=== PATIENT | male | born 2005 | race Caucasian/White ===

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

== ENCOUNTER 2024-08-24 20:41 | Emergency (ER) | payer OTHER, SELFPAY ==
[2024-08-24] VITALS (20 sets, daily range): BP systolic 127–173; BP diastolic 51–92; PULSE 92–96; RESP 16–17; TEMP 36.9; O2SAT 96–100
[2024-08-24] MEDS: Sucralfate 1 GM TAB PO (21:13)
--- NOTE | 2024-08-24 21:13 | W.ED.GENAD ---
Discharge Plan Disposition Patient Disposition: Home Condition: Good Discharge Details Clinical Impression: Acute dehydration, Vomiting and diarrhea Primary Care Provider: Michael Clancy ED Provider: Michael Jade Home Meds and New Rx's Prescriptions: New pantoprazole 20 mg tablet,delayed release (DR/EC) 20 mg PO DAILY Qty: 30 0RF famotidine 20 mg tablet 20 mg PO DAILY Qty: 30 0RF sucralfate [Carafate] 1 gram tablet 1 g PO BID Qty: 60 0RF Discharge Instructions Instructions: Nausea and vomiting in adults Additional Instructions: At this time your repeat laboratory workup has returned normal. You been rehydrated. Please take the medications that have been prescribed to help in your stomach 3 healing process after this vomiting. Please take the Zofran as needed for nausea. If you notice any worsening of your symptoms, or any new symptoms such as vomiting, diarrhea, fever, chills, shortness of breath, chest pain, numbness, weakness, or fainting , please return immediately to the emergency department for reevaluation. Please follow up with your primary care provider as soon as possible for reassessment and reevaluation. As always, it was a pleasure participating in your medical care today. Referrals: Michael Clancy MD [Primary Care Provider] - [facility] General Date/Time Provider Initiated Documentation: 08/24/24 20:53. [facility] Narrative: 18-year-old male with no significant past medical history presents today for evaluation of nausea and vomiting and diarrhea. Patient states that symptoms started around noon. Last night he did have prime rib for dinner, and this late morning he had spinach stuffing. He did have a greater than normal amount of alcohol in [place], but no other significant alcohol intake otherwise. He denies any medication use. No other sick contacts at home. He admits to multiple episodes of this vomiting and diarrhea. No blood in his stool, but he does admit to seeing a small amount of streaking of blood in the most recent episode of emesis. He denies any history of GI bleeds in the past. He denies any excessive Tylenol or Motrin use. No other complaints at this time. Related Data Home Medications ?Medication ?Instructions ?Recorded ?Confirmed famotidine 20 mg tablet 20 mg PO DAILY #30 tabs 08/25/24 pantoprazole 20 mg tablet,delayed 20 mg PO DAILY #30 tabs 08/25/24 release sucralfate 1 gram tablet (Carafate) 1 g PO BID #60 tabs 08/25/24 Previous Rx's ?Medication ?Instructions ?Recorded famotidine 20 mg tablet 20 mg PO DAILY #30 tabs 08/25/24 pantoprazole 20 mg tablet,delayed 20 mg PO DAILY #30 tabs 08/25/24 release sucralfate 1 gram tablet (Carafate) 1 g PO BID #60 tabs 08/25/24 Allergies Allergy/AdvReac Type Severity Reaction Status Date / Time No Known Allergies Allergy Verified 08/24/24 20:48 General Stated Complaint: Nausea/Vomit/Diar RAYMUNDO: 3 Exam Narrative Exam Narrative: 1.Const: Well-nourished, Well-developed, appearing stated age 2.Eyes: PERRL, no conjunctival injection, and symmetrical lids. 3.ENT: Atraumatic external nose and ears. Dry MM. Neck: Symmetric, trachea midline, No thyromegaly. 4.CVS: +S1/S2, Peripheral pulses 2+ and equal in all extremities. Brisk capillary refill in all extremities. 5.RESP: Unlabored respiratory effort. Clear to auscultation bilaterally. No wheezes rales or rhonchi 6.GI: Soft, nondistended. Nontender. Mild achiness throughout. No guarding or rebound. No pain at McBurney's point, negative Weems sign. 7.MSK: Normocephalic/Atraumatic, Extremities w/o deformity or ttp No cyanosis or clubbing, Normal movement of all extremities 8.Skin: Warm, Dry. No rashes or lesions. 9.Neuro: battery test engineer II-XII grossly intact. Sensation grossly intact, no focal neurologic deficits. 10.Psych: (AAO) x3. Appropriate mood and affect Course Vital Signs Vital signs: Vital Signs Temperature 36.9 C 08/24/24 20:46 Pulse 95 H 08/24/24 20:46 Respiratory Rate 16 08/24/24 20:46 Blood Pressure 131/83 08/24/24 20:46 Pulse Oximetry 99 08/24/24 20:46 Temperature 36.9 C 08/24/24 20:46 Temperature Source Temporal Artery Scan 01/02/25 20:46 Pulse 95 H 08/24/24 20:46 Respiratory Rate 17 08/24/24 20:51 Blood Pressure 131/83 08/24/24 20:46 Blood Pressure Position Sitting 08/24/24 20:46 Pulse Oximetry 99 08/24/24 20:51 Oxygen Delivery Method Room Air 08/24/24 20:51 Oxygen Flow Rate 0 08/24/24 20:46 Pain Level 0 08/24/24 20:51 Medical Decision Making 18-year-old male with no significant past medical history presents today for evaluation of nausea and vomiting and diarrhea. Patient states that symptoms started around noon. Last night he did have prime rib for dinner, and this late morning he had spinach stuffing. He did have a greater than normal amount of alcohol in [place], but no other significant alcohol intake otherwise. He denies any medication use. No other sick contacts at home. He admits to multiple episodes of this vomiting and diarrhea. No blood in his stool, but he does admit to seeing a small amount of streaking of blood in the most recent episode of emesis. He denies any history of GI bleeds in the past. He denies any excessive Tylenol or Motrin use. No other complaints at this time. Exam demonstrates well-appearing male, stable vital signs, no guarding or rebound. No focal tenderness on his abdominal exam. No signs of an acute surgical abdomen. Symptoms are suspicious for viral gastroenteritis. No indication for emergent imaging based on current clinical assessment. Mucous membranes are dry. We will rehydrate, give antiemetics, give Protonix, famotidine and Carafate. Monitor closely and reassess. Symptoms appear clinically inconsistent with Lizbeth-Palomino tear, Boerhaave tear, or severe esophageal variceal bleed. 12:14 AM Initial laboratory workup returned showed notable anion gap, elevated BUN, slightly low magnesium, slightly high bili. However clinically patient was feeling much better. Nausea have resolved. Stomach was minimally achy. No pain at McBurney's point, negative Weems sign. Patient felt clinically notably improved. We did give second liter of IV fluids, after this repeat electrolytes are normal, anion gap is normalized. Patient continues to feel well and performed p.o. trial well. Lipase normal. Symptoms inconsistent with diverticulitis, cholecystitis, appendicitis. Or pancreatitis. Suspect viral gastroenteritis. Discussed risks and benefits CT imaging. Will hold off for the time being. Family agrees with plan. Recommend continued hydration at home. Patient has had no hematemesis here. Hemoglobin notably stable. No tachycardia, blood pressure normal. No indication for emergent EGD. No hematochezia to suggest fulminant bleed. Patient will be given Protonix famotidine and Carafate for home as well as some Zofran. Recommend return if symptoms worsen or pain develops in abdomen. Discussed red flags which return. I have extensively reviewed the treatment plan and discharge instructions with the patient and their family. I have addressed all patient concerns at this time. The patient and family was made aware of what symptoms to monitor for that would warrant a return to the emergency department. Discussed the plan with the patient and family, they demonstrate verbal understanding and agreement with our assessment and plan at this time. The documentation in this chart was dictated using [employer] dictation software. Please excuse any dictation errors. Quality:SDOH Health Related Social Needs: No Data to Display PFSH All Active Problems (Updated 08/25/24 @ 00:03 by Michael Jade DO) Vomiting and diarrhea (Acute) Acute dehydration (Acute) Seasonal allergic rhinitis (Chronic) with eye symptoms as well Frequent epistaxis (Chronic) Right nares- refer to ENT Medical History (Updated 08/25/24 @ 00:03 by Michael Jade DO) COVID-19 virus infection Acne Hx of care with derm at [facility] Family History Mother Healthy adult on routine physical examination Father Healthy adult on routine physical examination Social History Smoking/Tobacco Use Status: Never Second Hand Exposure: No Smoking risk assessment performed?: Yes Alcohol Intake: never Drug use: Never Household members: other Details: Home with mom and dad; [employer] Freshman fall 2021 Education Level: college Details: Freshman [employer] fall 2021; studying economics 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 [employer] Pets and animals: Yes Pets and animals: cat(s) and dog(s) Sexually active: Yes Do you think of yourself as: straight/heterosexual Current gender identity: male How often do you talk on the phone with friends or family?: three or more times per week How often do you get together with friends or relatives?: three or more times per week Panel score (0-1 are the most socially isolated patients): 1 What type of physical activity do you participate in: regular exercise and other Details: may play club soccer or club Lacrosse in [employer] Seatbelt use: always Helmet use: Yes Drive intox or ride w/intox waste collection driver: No Working smoke detector in home: Yes Fire extinguisher in home: Yes Carbon monox detector in home: Yes Firearms in home: No
[2024-08-24] MEDS: Famotidine 20 MG/2 ML VIAL IVP (21:14)
[2024-08-24] MEDS: Ondansetron 4 MG/2 ML VIAL IVP (21:14)
[2024-08-24] MEDS: Pantoprazole 40 MG VIAL IVP (21:14)
[2024-08-24] MEDS: Lactated Ringers 1,000 ML 1000 ML IV (21:14)
[2024-08-24 21:36] LABS: Abs Immature Grans 0.05 10^3/uL (0.0-0.06); Absolute Basophil Count 0.06 10^3/uL (0.0-0.2); Basophils % 0.5 %; Eosinophils % 0.7 %; HCT 47.2 % (40.0-50.0); HGB 17.1 g/dL (13.5-17.5); Immature Grans % 0.4 %; Lymphocytes % 3.1 %; MCH 29.7 pg (27.0-33.0); MCHC 36.2 % (32.0-36.0); MCV 82 fL (80-95); MPV 9.5 fL (8.0-11.0); Monocytes % 3.6 %; Neutrophils % 91.7 %; Platelet Count 230 10^3/uL (130-400); RBC 5.76 10^6/uL (4.36-5.78); RDW 11.6 % (11.8-14.1); RDW-SD 34.5 fL; WBC 12.11 10^3/uL (4.4-10.8)
[2024-08-24 21:38] LABS: Absolute Eosinophil Count 0.08 10^3/uL (0.0-0.7); Absolute Lymphocyte Count 0.38 10^3/uL (1.2-3.4); Absolute Monocyte Count 0.44 10^3/uL (0.1-0.8)
[2024-08-24 22:09] LABS: ALT 24 U/L (16-63); AST 22 U/L (15-37); Albumin 5.5 g/dL (3.4-5.0); Alkaline Phosphatase 108 U/L (46-116); Anion Gap 17.5 mmol/L (3-11); BUN 26 mg/dL (7-18); Bilirubin, Total 1.55 mg/dL (0.2-1.0); CO2 22.5 mmol/L (21.0-32.0); CREATININE 1.4 mg/dL (0.70-1.30); Calcium 10.5 mg/dL (8.5-10.1); Chloride 100 mmol/L (98-107); Estimated GFR 73.79 (mL/min/1.73m2); Glucose 112 mg/dL (74-106); Magnesium 1.6 mg/dL (1.8-2.4); Potassium 4.3 mmol/L (3.5-5.1); Sodium 140 mmol/L (136-145); Total Protein 9.1 g/dL (6.4-8.2)
[2024-08-24 22:21] LABS: Lipase 19 U/L (<78)
[2024-08-24] MEDS: Normal Saline 1,000 ML 1000 ML IV (22:42)
[2024-08-24 23:59] LABS: Anion Gap 12.1 mmol/L (3-11); BUN 23 mg/dL (7-18); CO2 24.9 mmol/L (21.0-32.0); CREATININE 1.3 mg/dL (0.70-1.30); Calcium 8.9 mg/dL (8.5-10.1); Chloride 103 mmol/L (98-107); Estimated GFR 80.65 (mL/min/1.73m2); Glucose 104 mg/dL (74-106); Potassium 4.1 mmol/L (3.5-5.1); Sodium 140 mmol/L (136-145)
[2024-08-25] VITALS: O2SAT 95
[2024-08-25 00:01] VITALS: BP 118/60; PULSE 80; O2SAT 96
[2024-08-25] MEDS: Ondansetron O.D.T. 4 MG TABEF, 3 TABS/BTL PO (00:10)
== END 2024-08-25 00:14 | disposition home or self-care (01) ==
PROVIDERS: Emergency Provider Student in an Organized Health Care Education/Training Program; PCP Pediatrics
DX: E86.0 Dehydration (principal); R11.10 Vomiting, unspecified; R19.7 Diarrhea, unspecified
CPT/HCPCS: 80048; 80053; 83690; 96361; 96374; 96375; 99284; 83735; 85025; J2405; J2470